=== PATIENT | male | born 1950 | race Caucasian/White ===

== ENCOUNTER 2019-03-29 11:40 | Emergency (ER) | payer SELFPAY ==
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
[2019-03-29] MEDS: SODIUM CHLORIDE 0.9% 1000ML 1,000 ML IVS ONE (12:39)
[2019-03-29] MEDS: ONDANSETRON INJ 4 MG/2 ML VIAL IV ONE (12:40)
--- NOTE | 2019-03-29 12:48 | RAD ---
EXAM DESCRIPTION: Abdomen Series CLINICAL HISTORY: 68 years Male, abdominal pain COMPARISON: None. FINDINGS: No consolidation. No pneumothorax. No significant pleural effusion. Cardiomediastinal silhouette is unremarkable. No evidence of bowel dilatation to suggest obstruction. No obvious free air. No significant air-fluid levels. Osseous structures are unremarkable. IMPRESSION: 1. No acute findings within the chest. 2. Nonobstructive bowel gas pattern. Electronically signed by: Bakari Rose MD 03/29/2019 12:46 PM CDT
[2019-03-29 13:39] VITALS: BP 193/110; TEMP 979.1; O2SAT 99
== END 2019-03-29 13:30 | disposition home or self-care (01) ==
LOC: ER 11:40
DX: K52.9 Noninfective gastroenteritis and colitis, unspecified (principal); E11.65 Type 2 diabetes mellitus with hyperglycemia; I10 Essential (primary) hypertension; Z87.891 Personal history of nicotine dependence; Z79.84 Long term (current) use of oral hypoglycemic drugs; Z79.899 Other long term (current) drug therapy; Z88.8 Allergy status to other drugs, medicaments and biological substances; Z87.828 Personal history of other (healed) physical injury and trauma; Z99.3 Dependence on wheelchair
CPT/HCPCS: 36415; 74019; 80053; 83690; 84484; 85025; J2405; J7030

== ENCOUNTER 2019-06-25 22:33 | Inpatient (IN) | payer MEDICAID ==
[2019-06-25] MEDS ORDERED: IPRATROPIUM/ALBUTEROL 3 ML VIAL NEB ONE ×3 (22:43→23:48)
[2019-06-25] MEDS ORDERED: FUROSEMIDE INJ 40 MG/4 ML VIAL IV ONE (22:47)
[2019-06-25] MEDS ORDERED: METOPROLOL TARTRATE 50 MG TAB PO ONE (23:22)
--- NOTE | 2019-06-25 23:25 | RAD ---
EXAM DESCRIPTION: XR Chest,1 View CLINICAL HISTORY: shortness of breath, edema TECHNIQUE: Single frontal view of the chest is submitted. COMPARISON: None available for comparison FINDINGS: Heart: The cardiothoracic silhouette is enlarged. Lungs: Central pulmonary vascular and interstitial prominence and bibasilar opacities. Mediastinum: Thoracic aortic atherosclerosis. Pleura: Blunting of the costophrenic angles bilaterally. Bones: Intact Upper abdomen: Unremarkable IMPRESSION: Findings which may be related to pulmonary congestion including small bilateral pleural effusions. Superimposed infection not excluded. Electronically signed by: Natalee Hodge MD 06/25/2019 11:23 PM [facility]
[2019-06-25] MEDS ORDERED: methylPREDNISolone SODIUM SUC 40 MG/ML VIAL IV ONE (23:47)
[2019-06-25] MEDS ORDERED: cefTRIAXone SODIUM 1 GM in SODIUM CHL 0.9% 50ML MIN-BAG+ 50 ML IVPB ONE (23:49)
[2019-06-25] MEDS ORDERED: cefTRIAXone SODIUM 1 GM VIAL ONE (23:58)
[2019-06-25] MEDS ORDERED: SODIUM CHL 0.9% 50ML MIN-BAG+ 50 ML IVPB ONE (23:59)
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
[2019-06-26] MEDS ORDERED: LEVOTHYROXINE SODIUM 0.1 MG TAB ONE ×2 (00:02→20:18)
[2019-06-26] MEDS ORDERED: LEVOTHYROXINE SODIUM 0.025 MG TAB ONE ×2 (00:02→20:18)
--- NOTE | 2019-06-26 00:31 | HP ---
SUPERVISING PHYSICIAN: Robert Bullock M.D. CHIEF COMPLAINT: Increasing shortness of breath. HISTORY OF PRESENT ILLNESS: Mr. Aviles is a 69 year-old male patient that presented to the Emergency Room this morning secondary to severe shortness of breath with some respiratory distress. He noted that he was unable to breathe lying flat and then he was breathing initially on presentation to the Emergency Room notably up to 30 times per minute. It was noted by the Emergency Room physician that he was having a significant amount of jugular venous distention. The patient endorsed that his shortness of breath had progressively worsened over the last month, but last night prior to presenting to the Emergency Room he got where he could not walk any significant amount without significant shortness of breath. On initial presentation to the Emergency Room, he was satting 85% on room air even at rest. He also endorsed that he had gained well over 35 pounds in the last month. He has been incarcerated for over 12-1/2 years, having just been released in March. While he was in long-term he notes that he had several heart attacks and it was actually recommended that he have coronary artery bypass graft which he refused to have done. He does have a history of smoking and has continued to smoke once he got out of care home, but denied any significant history of any congestive heart failure or cirrhosis. In the Emergency Room, he was started on Lasix, beta carlos and oxygen. His initial vital signs in the Emergency Room showed he was significantly hypertensive at 151/102 with saturation 87% on room air. After treatment, he had significant improvement. With Lasix and further treatment, he was showing to be no longer in a significant amount of distress, was satting 99% on 2 liters nasal cannula and was showing stable enough to be admitted. He is now going to be admitted for treatment of congestive heart failure as his labs did show he had a BNP of 776 and his chest x-ray showed findings that were consistent with pulmonary edema with central pulmonary vascular and interstitial prominence, and bibasilar opacities. He was admitted in stable condition. PAST MEDICAL HISTORY: 1. Previous myocardial infarctions not treated. 2. Several episodes of heat exhaustion. 3. Hypertension. 4. Diabetes mellitus on oral therapy. PAST SURGICAL HISTORY: No major surgeries or procedures listed. HOME MEDICATIONS: Listed as discharge from incarceration in March with no followup, that he was on: 1. Metoprolol 25 mg b.i.d. 2. Metformin 500 mg b.i.d. 3. Atorvastatin 40 mg at bedtime. 4. Glipizide 5 mg daily. ALLERGIES: ISOSORBIDE NITRATE. FAMILY HISTORY: Mother has a history of heart disease. Father's history is unknown. He has 1 sister who has chronic obstructive pulmonary disease and 1 brother who has diabetes that was at age 41. SOCIAL HISTORY: The patient is recently released from incarceration after 12- 1/2 years on a 25 year sentence from probation. He does have a history of smoking and he mostly smokes about 1/4 pack a day and currently lives with his nephew. He does not use illicit drugs or alcohol. He currently is enrolled in a 12-step program. REVIEW OF SYSTEMS: CONSTITUTIONAL: Positive for general malaise and weakness. HEENT: Denies any headaches, vision changes, sore throat, ear aches, nasal congestion or headaches. RESPIRATORY: As noted in History of Present Illness, increasing cough which is productive with purulent sputum with shortness of breath and increasing amount of wheezing. CARDIOVASCULAR: Denies any palpitations, syncopal episodes. Positive for worsening bilateral lower extremity edema. GASTROINTESTINAL: Negative for any nausea, vomiting, diarrhea, constipation or abdominal pains. GENITOURINARY: Denies any dysuria, hematuria or polyuria. MUSCULOSKELETAL: Denies any significant changes. He is apparently wheelchair dependent due to a past accident with lower extremity weakness. SKIN: Denies any lesions, rashes, moles or unexplained changes. NEUROLOGIC: Notes he has some anxiety but denies any seizures, ataxia, syncopal episodes or other focal deficits. ENDOCRINE: Negative for polydipsia, polyphagia. Notes that he does have excessive sweating. HEMATOLOGIC: Denies easy bruising, unexplained bleeding or transfusion reactions. PHYSICAL EXAMINATION: VITAL SIGNS: Temperature 96.9, pulse 108, blood pressure 151/102, showing 28 respirations with 87% saturation on room air. After breathing treatment and Lasix on 2 liters nasal cannula was satting 97%, blood pressure was down to 138/88, heart rate 86. GENERAL: On examination on the Medical/Surgical floor, the patient was alert. Appeared to be in no obvious distress, but was reporting distress on initial presentation to the Emergency Department. He does appear to be ill-appearing and somewhat disheveled. HEENT: Tympanic membranes were mostly obscured with cerumen. Oropharynx was showing to be pink and moist with extremely poor dentition. NECK: Supple with no noted jugular venous distention, but reported jugular venous distention prior to treatment. Neck was supple, non-tender with full range of motion. RESPIRATORY: Decreased breath sounds towards the bases but no obvious wheezing, rales or rhonchi. CARDIOVASCULAR: Regular rate and rhythm without appreciable murmurs, gallops, or rubs. ABDOMEN: Obese but looks distended. Soft to palpation with positive bowel sounds. BACK: Exam was without any CVA or vertebral tenderness. EXTREMITIES: Shows 3+ edema to bilateral lower extremities with chronic changes indicating chronic stasis ulcers in the past. NEUROLOGIC: Cranial nerves II-XII are grossly intact. He was alert and oriented times three. Facial features were symmetrical. Extraocular movements are within normal limits. There is no notable nystagmus. SKIN: Warm, pink and dry again with chronic changes noted to both lower extremities. RECTAL: Exam was deferred. LABORATORY: CBC showed white count 6,500, hemoglobin 14.8, hematocrit 46.2, platelet count 240,000. Differential showed to be without a left shift initially. RBC indices indicate a microcytic hypochromic presentation. Coagulation studies showed PT of 12.4, PTT of 26.4. Chemistries show normal electrolytes with glucose 144, BUN initially was 8, creatinine 0.8, lactic acid 1.8. Liver functions are all within normal limits. Magnesium normal at 1.9. BNP was elevated at 762, TSH was elevated at 10.6. Free T4 was pending. MICROBIOLOGY: Influenza A and B by PCR was negative. RADIOLOGY: Chest x-ray per radiology interpretation shows findings which may be related to pulmonary congestion including some small bilateral pleural effusions, but superimposed infection is not excluded. This was followed-up with a CT of the chest without contrast and per radiology interpretation showed no acute abnormality of the chest. There was note of a large right and moderate left pleural effusions with adjacent passive atelectasis, although underlying pneumonia or aspiration excluded but felt to be less likely with mild bilateral edema and mild ascites with emphysematous changes bilaterally. Echocardiogram pending. ASSESSMENT: 1. Acute decompensated heart failure, likely chronic etiology likely due to cardiomyopathy with echocardiogram pending and exacerbated by poorly controlled hypertension. 2. Chronic obstructive pulmonary disease with concerns for developing bilateral pneumonia. 3. Respiratory distress with pending failure secondary to #1 requiring aggressive management. 4. Hypertension poorly controlled. 5. Diabetes mellitus type 2, poorly controlled. 6. Elevated TSH likely due to untreated hypothyroidism with pending further workup. 7. Nicotine addiction in a current smoker. PLAN: Mr. Aviles is going to be admitted for continuation of workup of acute respiratory failure/distress secondary to congestive heart failure exacerbation. I have ordered an echocardiogram to further help in his management. I have also started him on treatment for questionable underlying pneumonia given his past history of incarceration and started him on azithromycin and Rocephin. He will be on sliding scale per protocol. I have him on Lasix 40 mg IV b.i.d. Start him on an Doc inhibitor in the form of Lisinopril and continue his beta carlos. I have started him on nicotine patch for smoking cessation and continued reinforcement. I have got him on deep venous thrombosis prophylaxis per protocol. Given the findings on x-ray and CT studies, I have discussed the case with Dr. Wise who has agreed to take a look at his CT to see if there is any further need for further consultation for possible thoracentesis given the underlying pleural effusions. Will have him on fluid restrictions 1500 mL for 24 hours. Will go ahead and give him some Solu-Medrol 40 mg every 12 hours given his degree of wheezing and his past history of smoking on top of emphysema and further assess clinically. He is also been started on Levothyroxine with T4 pending. I have anticipated his length of stay to be at least 2 to 3 days. Once he is medically stabilized, he will need close followup in the outpatient setting with a primary care physician and help with further medical management. I am waiting on further assessment of his echocardiogram to help with his management of his congestive heart failure. Until we can transition him to outpatient management will continue to monitor and treat as needed. #[id number] [facility]
[2019-06-26] MEDS ORDERED: GLUCAGON INJ 1 MG VIAL SUBCU PRN (03:26)
[2019-06-26] MEDS ORDERED: DEXTROSE 10% 500ML IVPB PRN (03:26)
[2019-06-26] MEDS ORDERED: ACETAMINOPHEN SUPPOSITORY 650 MG PR PRN (03:37)
[2019-06-26] MEDS ORDERED: SODIUM CHLORIDE 0.9% (FLUSH) 10 ML SYG IV PRN (03:37)
[2019-06-26] MEDS ORDERED: ONDANSETRON INJ 4 MG/2 ML VIAL IV PRN (03:37)
[2019-06-26] MEDS ORDERED: NITROGLYCERIN 0.4 MG 25 EA TAB SL PRN (03:37)
[2019-06-26] MEDS ORDERED: IPRATROPIUM/ALBUTEROL 3 ML VIAL INH PRN (03:37)
[2019-06-26] MEDS: IV SET AND CAP CHANGE INJ INJ SCH (04:42)
[2019-06-26] MEDS ORDERED: AZITHROMYCIN IV 500 MG VIAL IVPB ONE ×2 (04:55→20:18)
[2019-06-26] MEDS ORDERED: SODIUM CHLORIDE 0.9% 250ML 250 ML ONE ×2 (04:55→20:17)
[2019-06-26] MEDS: AZITHROMYCIN IV 500 MG in SODIUM CHLORIDE 0.9% 250ML 250 ML IVPB SCH (05:43)
[2019-06-26] MEDS: INSULIN LISPRO 100 UNITS/ML PEN SUBCU SCH ×4 (07:32→21:24)
[2019-06-26] MEDS ORDERED: glipiZIDE 5 MG TAB PO SCH (09:00)
[2019-06-26] MEDS ORDERED: glipiZIDE EXTENDED REL (XL) 5 MG TAB ONE (09:00)
[2019-06-26] MEDS ORDERED: cefTRIAXone SODIUM 1 GM VIAL ONE (09:01)
[2019-06-26] MEDS ORDERED: SODIUM CHL 0.9% 50ML MIN-BAG+ 50 ML IVPB ONE (09:02)
[2019-06-26] MEDS: IPRATROPIUM/ALBUTEROL 3 ML VIAL INH SCH ×4 (09:02→20:00)
[2019-06-26] MEDS: METOPROLOL TARTRATE 25 MG TAB PO SCH ×2 (09:22→20:43)
[2019-06-26] MEDS: LISINOPRIL 5 MG TAB PO SCH (09:22)
[2019-06-26] MEDS: SODIUM CHLORIDE 0.9% (FLUSH) 10 ML SYG IV SCH ×2 (09:23→20:44)
[2019-06-26] MEDS: FUROSEMIDE INJ 40 MG/4 ML VIAL IV SCH ×2 (09:23→17:17)
[2019-06-26] MEDS: cefTRIAXone SODIUM 1 GM in SODIUM CHL 0.9% 50ML MIN-BAG+ 50 ML IVPB SCH (09:23)
[2019-06-26] MEDS: metFORMIN XR 500 MG TAB.ER.24 PO SCH ×2 (09:23→21:25)
[2019-06-26] MEDS: methylPREDNISolone SODIUM SUC 40 MG/ML VIAL IV SCH ×2 (09:23→20:44)
--- NOTE | 2019-06-26 10:48 | CT ---
EXAM DESCRIPTION: Chest w/o Contrast CLINICAL HISTORY: 69 years Male, severe hypoxia, CHF vs COPD exec COMPARISON: Chest radiograph 06/25/2019. TECHNIQUE: CT images through the chest without IV contrast. Multiplanar reformations provided. This exam was performed according to our departmental dose-optimization program, which includes automated exposure control, adjustment of the mA and/or kV according to patient size and/or use of iterative reconstruction technique. CT CHEST FINDINGS: Heart and mediastinum: Enlarged heart. Small pericardial effusion measuring up to 7 mm in thickness anteriorly. Unremarkable esophagus. Mild atherosclerosis. No mediastinal adenopathy. Evaluation for hilar adenopathy limited without intravenous contrast. Thyroid Gland: Normal. Lungs: Mild atelectasis consolidation in the lower lobes adjacent pleural effusions. This probably represents passive atelectasis although pneumonia or aspiration not excluded. Emphysematous changes bilaterally. Airways: Normal. Pleura: Large right and moderate left pleural effusions with adjacent atelectasis or consolidation. Musculoskeletal and Soft Tissues: No acute fracture or aggressive appearing osseous lesion. Mild body wall edema. Subphrenic Structures: Mild ascites. IMPRESSION: 1. No acute abnormality of the chest. 2. Large right and moderate left pleural effusions with adjacent passive atelectasis, although underlying pneumonia or aspiration excluded but felt to be less likely. 3. Mild bilateral edema and mild ascites. 4. Emphysematous changes bilaterally. Electronically signed by: Randy Leung MD 06/26/2019 10:46 AM FITTING ROOM INSPECTOR
[2019-06-26] MEDS: NICOTINE PATCH 14 MG TD SCH (14:43)
[2019-06-26] MEDS ORDERED: glipiZIDE 5 MG TAB ONE (20:17)
[2019-06-26] MEDS: ATORVASTATIN 20 MG TAB PO SCH (20:43)
[2019-06-26] MEDS: ENOXAPARIN SODIUM 40 MG/0.4 ML SYG SUBCU SCH (20:43)
[2019-06-26] MEDS ORDERED: LEVOTHYROXINE SODIUM 0.1 MG, LEVOTHYROXINE SODIUM 0.025 MG PO ONE ×2 (23:50)
[2019-06-27] MEDS: AZITHROMYCIN IV 500 MG in SODIUM CHLORIDE 0.9% 250ML 250 ML IVPB SCH (05:31)
[2019-06-27] MEDS: glipiZIDE 5 MG TAB PO SCH (06:53)
[2019-06-27] MEDS ORDERED: SODIUM CHL 0.9% 50ML MIN-BAG+ 50 ML IVPB ONE (08:05)
[2019-06-27] MEDS ORDERED: cefTRIAXone SODIUM 1 GM VIAL ONE (08:05)
[2019-06-27] MEDS: INSULIN LISPRO 100 UNITS/ML PEN SUBCU SCH ×4 (08:13→21:24)
[2019-06-27] MEDS: METOPROLOL TARTRATE 25 MG TAB PO SCH ×2 (08:55→21:19)
[2019-06-27] MEDS: NICOTINE PATCH 14 MG TD SCH (08:56)
[2019-06-27] MEDS: metFORMIN XR 500 MG TAB.ER.24 PO SCH ×2 (08:56→21:19)
[2019-06-27] MEDS: FUROSEMIDE INJ 40 MG/4 ML VIAL IV SCH ×2 (08:56→17:11)
[2019-06-27] MEDS: methylPREDNISolone SODIUM SUC 40 MG/ML VIAL IV SCH ×2 (08:56→21:20)
[2019-06-27] MEDS: LISINOPRIL 5 MG TAB PO SCH (08:56)
[2019-06-27] MEDS: cefTRIAXone SODIUM 1 GM in SODIUM CHL 0.9% 50ML MIN-BAG+ 50 ML IVPB SCH (08:56)
[2019-06-27] MEDS: SODIUM CHLORIDE 0.9% (FLUSH) 10 ML SYG IV SCH ×2 (08:57→21:19)
[2019-06-27] MEDS: IPRATROPIUM/ALBUTEROL 3 ML VIAL INH SCH ×4 (09:07→19:56)
--- NOTE | 2019-06-27 12:33 | CONS ---
REFERRING PHYSICIAN: Edi Reagan NP/ Robert Bullock MD HISTORY OF PRESENT ILLNESS: The patient is a 69 year-old male who presented to the Emergency Room with shortness of breath, respiratory distress and hypoxia. He had the signs and symptoms of congestive heart failure and is being treated for that, however, he was also found on x-ray on CT scan to have bilateral pleural effusions and I was asked to consider diagnostic and/or therapeutic thoracentesis. Currently, the patient is relatively comfortable on nasal cannula oxygen with a respiratory rate of 40 to 22. PAST MEDICAL HISTORY: Significant for myocardial infarctions, strokes, diabetes type 2 and hypertension. The patient states he has had hepatitis B or C sometime in the past but he has not been treated. PAST SURGICAL HISTORY: None. CURRENT MEDICATIONS: 1. Metoprolol. 2. Metformin. 3. Atorvastatin. 4. Glipizide. ALLERGIES: ISOSORBIDE NITRATE. FAMILY HISTORY: Positive for heart disease, chronic obstructive pulmonary disease and diabetes. SOCIAL HISTORY: The patient is . He was recently released from incarceration after 12 years for DWI. He continues to smoke. He does not use alcohol or drugs currently. He did use methamphetamine intravenously in his younger days pre-incarceration. REVIEW OF SYSTEMS: There has been no cough, fever or significant chest pain. No normal vaginal delivery or change in bowel habits. There is no significant problem voiding. PHYSICAL EXAMINATION: VITAL SIGNS: GENERAL: The patient is alert and oriented and cooperative and in no acute distress. He is currently afebrile, normotensive. HEENT: Sclera nonicteric, mucous membranes are moist. NECK: Without adenopathy. BACK: Without CVA tenderness. CHEST: Equal distant breath sounds bilaterally. There are decreased breath sounds posteriorly in the basis. HEART: Regular rate and rhythm. ABDOMEN: Soft, non-tender. RECTAL: Examination deferred. LABORATORY: Potassium of 4.2 yesterday. Blood sugar 305, liver functions within normal limits. White count 4.7 yesterday with hemoglobin 14.6, platelet count 235,000. Neutrophils 86%. ADMITTING DIAGNOSIS: 1. Congestive heart failure likely the cause of his bilateral pleural effusions that are mildly symptomatic. 2. History of hepatitis. 3. History of IV drug use. RECOMMENDATIONS: Check the patient for hepatitis. Recommend a TB skin test a an outpatient. Continue the diuresis with strict I&Os and if his symptoms fail to resolve, would consider a therapeutic and/or diagnostic thoracentesis under sonographic guidance. #[id number] [facility] CENTERMaciej
[2019-06-27] MEDS ORDERED: SODIUM CHLORIDE 0.9% 250ML 250 ML ONE (19:16)
[2019-06-27] MEDS ORDERED: AZITHROMYCIN IV 500 MG VIAL IVPB ONE (19:17)
[2019-06-27] MEDS: ATORVASTATIN 20 MG TAB PO SCH (21:19)
[2019-06-27] MEDS: ENOXAPARIN SODIUM 40 MG/0.4 ML SYG SUBCU SCH (21:19)
[2019-06-27] MEDS ORDERED: ACETAMINOPHEN 325 MG TAB PO PRN (21:53)
[2019-06-28] MEDS: AZITHROMYCIN IV 500 MG in SODIUM CHLORIDE 0.9% 250ML 250 ML IVPB SCH (05:45)
[2019-06-28] MEDS: glipiZIDE 5 MG TAB PO SCH (07:06)
[2019-06-28] MEDS: INSULIN LISPRO 100 UNITS/ML PEN SUBCU SCH ×5 (07:37→21:03)
[2019-06-28] MEDS ORDERED: SODIUM CHL 0.9% 50ML MIN-BAG+ 50 ML IVPB ONE (07:51)
[2019-06-28] MEDS ORDERED: cefTRIAXone SODIUM 1 GM VIAL ONE (07:52)
[2019-06-28] MEDS: METOPROLOL TARTRATE 25 MG TAB PO SCH ×2 (08:13→20:58)
[2019-06-28] MEDS: cefTRIAXone SODIUM 1 GM in SODIUM CHL 0.9% 50ML MIN-BAG+ 50 ML IVPB SCH (08:13)
[2019-06-28] MEDS: metFORMIN XR 500 MG TAB.ER.24 PO SCH ×2 (08:13→20:59)
[2019-06-28] MEDS: methylPREDNISolone SODIUM SUC 40 MG/ML VIAL IV SCH (08:13)
[2019-06-28] MEDS: SODIUM CHLORIDE 0.9% (FLUSH) 10 ML SYG IV SCH ×2 (08:14→20:59)
[2019-06-28] MEDS: LISINOPRIL 5 MG TAB PO SCH (08:14)
[2019-06-28] MEDS: FUROSEMIDE INJ 40 MG/4 ML VIAL IV SCH ×2 (08:14→17:04)
[2019-06-28] MEDS: NICOTINE PATCH 14 MG TD SCH (08:14)
[2019-06-28] MEDS: IPRATROPIUM/ALBUTEROL 3 ML VIAL INH SCH ×3 (08:54→16:52)
--- NOTE | 2019-06-28 09:00 | RAD ---
EXAM: XR Chest, 2 Views CLINICAL HISTORY: pneumonia TECHNIQUE: Frontal and lateral views of the chest. COMPARISON: 06/26/2019. FINDINGS: Limitations: None. Lungs: Persistent airspace consolidation in both lung bases. Pleural space: Stable left and decreased right pleural effusion. No pneumothorax. Heart: Stable cardiac enlargement. Mediastinum: Unremarkable. Bones/joints: Unremarkable. Vasculature: Improved vascular congestion. IMPRESSION: Decreased right pleural effusion and bilateral vascular congestion. Abnormalities otherwise unchanged. Electronically signed by: Kayleen Varghese MD 06/28/2019 8:59 AM HARP MAKER
--- NOTE | 2019-06-28 09:42 | PN ---
DATE: 06/27/19 SUPERVISING PHYSICIAN: Robert Bullock MD SUBJECTIVE: The patient is sitting at the bedside table. He did have an assessment of oxygen trial off, on room air, and quickly desaturation to the mid 80s. He notes that his breathing is easy but he does get short of breath quickly. Dr. Wise has seen the patient in consultation. He is not reporting any chest pain, nausea, vomiting or diarrhea. OBJECTIVE: VITAL SIGNS: Temperature 98.1, pulse 96, blood pressure 112/71, respirations 20, oxygen saturation 93% on 2 liter nasal cannula, saturation down at 86% on room air. I&O: Not well managed as he does have a [place] in. His weight shows to be down from 89 kg to 85 kg on admission. GENERAL: The patient is resting comfortably, appears to be in no distress. CHEST: Lung sounds clear to auscultation, just diminished towards the bases bilaterally. HEART: Regular rate and rhythm. ABDOMEN: Obese, soft, non-tender, positive bowel sounds. EXTREMITIES: Just a trace of edema. There are some chronic changes to the christina area with just redness but no signs of cellulitis. NEUROLOGIC: He remains alert and oriented x 3. LABORATORY: Fairly normal yesterday. Blood sugars are showing to be elevated but stable between 190 and 289. Hepatitis panel is pending. HIV pending. RADIOLOGY: No additional studies today. ASSESSMENT: 1. Acute decompensated heart failure, likely chronic etiology likely due to cardiomyopathy with echocardiogram pending and exacerbated by poorly controlled hypertension. 2. Chronic obstructive pulmonary disease with concerns for developing bilateral pneumonia. 3. Respiratory distress with pending failure secondary to #1 requiring aggressive management with patient showing to be stable now. 4. Hypertension poorly controlled. 5. Diabetes mellitus type 2, poorly controlled. 6. Elevated TSH likely due to untreated hypothyroidism with pending further workup. 7. Nicotine addiction in a current smoker. PLAN: Dr. Wise has seen the patient in consultation. Will continue to monitor the patient closely and monitor his blood sugars and blood pressure and continue with some diuresis with Lasix. Will probably need to adjust his blood pressure medicine prior to discharge and increase his metoprolol as he is showing a little bit of increase in his heart rate, but it may be that he is getting a little dry. Will continue to work with the patient regarding his pulmonary hygiene in efforts to hopefully discharge the patient off of oxygen as I do not know that he has financial resources for home 02. We will check an x-ray in the morning. I have ordered a hepatitis panel and HIV, those are pending. When he is discharged he will need to have further workup including TB testing as he has been incarcerated. Will continue antibiotic coverage for concerning pneumonia which we can't completely rule out at this point Will need to probably start him on some levothyroxine and get a T4, T3 on him. Until we can transition him to outpatient management, we will continue to monitor and treat as needed. #[id number] [facility]
[2019-06-28] MEDS ORDERED: GABAPENTIN 300 MG CAP PO ONE (12:49)
[2019-06-28] MEDS ORDERED: POTASSIUM CHLORIDE 20 MEQ TAB PO ONE (12:50)
[2019-06-28] MEDS ORDERED: POTASSIUM CHLORIDE 20 MEQ TAB ONE (17:00)
[2019-06-28] MEDS ORDERED: GABAPENTIN 300 MG CAP ONE (17:00)
[2019-06-28] MEDS ORDERED: SODIUM CHLORIDE 0.9% 250ML 250 ML ONE (20:15)
[2019-06-28] MEDS ORDERED: AZITHROMYCIN IV 500 MG VIAL IVPB ONE (20:16)
[2019-06-28] MEDS: ATORVASTATIN 20 MG TAB PO SCH (20:58)
[2019-06-28] MEDS: ENOXAPARIN SODIUM 40 MG/0.4 ML SYG SUBCU SCH (20:58)
[2019-06-28] MEDS ORDERED: GABAPENTIN 300 MG CAP PO SCH (21:00)
--- NOTE | 2019-06-28 22:24 | PN ---
DATE: 06/28/19 SUPERVISING PHYSICIAN: Robert Bullock M.D. SUBJECTIVE: The patient is doing fairly well. He is not showing any distress or any worsening shortness of breath. He is actually able to go to a chair. I discussed with him that we are going to try to do some ambulation studies again to see what his oxygen assessment needs are. He has had no chest pains. No nausea or vomiting or any diarrhea. OBJECTIVE: VITAL SIGNS: Temperature 97.7, pulse 95, blood pressure 115/77, respirations 18, satting 95% on 2 liters nasal cannula. Weight id sown to 83.4 kg. GENERAL: The patient is resting comfortably. CHEST: Lung are much clearer today, just still diminished towards the bases but no wheezing or rhonchi are noted. HEART: Regular rate and rhythm. ABDOMEN: Obese, soft, non-tender, positive bowel sounds. EXTREMITIES: Just a trace of edema with no signs of cellulitis. NEUROLOGIC: He remains alert and oriented x 3. LABORATORY: Blood sugar still remains elevated but stable. Hepatitis panel and HIV are pending. Will plan to repeat a BMP in the morning. RADIOLOGY: Chest x-ray per radiology interpretation shows decreased right pleural effusion and bilateral vascular congestion with some persistent airspace consolidation both lung bases. Echocardiogram is still pending. ASSESSMENT: 1. Acute decompensated heart failure, likely chronic etiology likely due to cardiomyopathy with echocardiogram pending and exacerbated by poorly controlled hypertension with the patient showing good response to diuretics and fluid restrictions. 2. Chronic obstructive pulmonary disease with concerns for developing bilateral pneumonia showing good response with parenteral antibiotics. 3. Respiratory distress with pending failure secondary to #1 requiring aggressive management with patient showing to be stable now. 4. Hypertension poorly controlled. 5. Diabetes mellitus type 2, poorly controlled. 6. Elevated TSH likely due to untreated hypothyroidism with pending further workup. 7. Nicotine addiction in a current smoker. PLAN: Will continue with current plan at this point. Continue with diuresis and antibiotic coverage for underlying pneumonia. Dr. Wise remains on the case as consultation. We are further assessing the patient's need for oxygen. I would anticipate as he is improving he will go home tomorrow. He most likely will need oxygen qualification at home as soon as I see his echo will review his ejection fraction and further assess his home medications on discharge. If he remains a little bit tachycardic but he is not hypertensive, it may be that he is a little dry from his hyperglycemia from steroid administration. Will go ahead and stop steroids today but continue with Lasix. I have added additional coverage to his sliding scale with 8 units of insulin a.c. I hesitate to change his Metformin or add Levemir given that he is on steroids and this should improve once he is off these at home. I would anticipate when he discharges he is going to at least need to be on continued beta carlos and I have added Lisinopril which he will need a prescription for and continued antibiotic coverage along with qualification for oxygen. He will need to get established at some point with a primary care physician and I discussed going to the [facility] at this point. He does have pending workup in regards to hepatitis and HIV. Given that he has been incarcerated for over 12 years, I have also, along with Dr. Wise, recommended that he at some point have a PPD to further rule out any exposure to tuberculosis, but at this point there is no indication of any evidence of it on x-ray or clinical findings. Until we can transition to outpatient management will continue to monitor and treat as needed. #[id number] [facility]
[2019-06-29] MEDS: IV SET AND CAP CHANGE INJ INJ SCH (05:18)
[2019-06-29] MEDS: AZITHROMYCIN IV 500 MG in SODIUM CHLORIDE 0.9% 250ML 250 ML IVPB SCH (05:56)
[2019-06-29] MEDS: glipiZIDE 5 MG TAB PO SCH (06:44)
[2019-06-29] MEDS: IPRATROPIUM/ALBUTEROL 3 ML VIAL INH SCH ×3 (07:19→15:14)
[2019-06-29] MEDS: INSULIN LISPRO 100 UNITS/ML PEN SUBCU SCH ×4 (07:23→12:52)
[2019-06-29] MEDS ORDERED: SODIUM CHL 0.9% 50ML MIN-BAG+ 50 ML IVPB ONE (09:50)
[2019-06-29] MEDS ORDERED: cefTRIAXone SODIUM 1 GM VIAL ONE (09:51)
[2019-06-29] MEDS: LISINOPRIL 5 MG TAB PO SCH (10:04)
[2019-06-29] MEDS: METOPROLOL TARTRATE 25 MG TAB PO SCH (10:04)
[2019-06-29] MEDS: metFORMIN XR 500 MG TAB.ER.24 PO SCH (10:04)
[2019-06-29] MEDS: cefTRIAXone SODIUM 1 GM in SODIUM CHL 0.9% 50ML MIN-BAG+ 50 ML IVPB SCH (10:05)
[2019-06-29] MEDS: FUROSEMIDE INJ 40 MG/4 ML VIAL IV SCH (10:05)
[2019-06-29] MEDS: NICOTINE PATCH 14 MG TD SCH (10:05)
[2019-06-29] MEDS: SODIUM CHLORIDE 0.9% (FLUSH) 10 ML SYG IV SCH (10:06)
[2019-06-29] MEDS ORDERED: guaiFENesin ER TAB 600 MG TAB PO SCH (11:00)
[2019-06-29 17:42] VITALS: TEMP 98
[2019-06-29 17:50] VITALS: BP 130/81; O2SAT 95
[2019-06-30] MEDS ORDERED: LEVOTHYROXINE SODIUM 0.025 MG TAB PO SCH (06:30)
--- NOTE | 2019-07-07 08:15 | DS ---
SUPERVISING PHYSICIAN: Robert Bullock MD ADMISSION DIAGNOSES: 1. Acute decompensated heart failure, likely chronic etiology likely due to cardiomyopathy with echocardiogram pending and exacerbated by poorly controlled hypertension. 2. Chronic obstructive pulmonary disease with concerns for developing bilateral pneumonia. 3. Respiratory distress with pending failure secondary to #1 requiring aggressive management. 4. Hypertension poorly controlled. 5. Diabetes mellitus type 2, poorly controlled. 6. Elevated TSH likely due to untreated hypothyroidism with pending further workup. 7. Nicotine addiction in a current smoker. DISCHARGE DIAGNOSES: 1. Acute decompensated heart failure, likely chronic etiology likely due to cardiomyopathy with echocardiogram pending and exacerbated by poorly controlled hypertension with the patient showing good response to diuretics and fluid restrictions. 2. Chronic obstructive pulmonary disease with concerns for developing bilateral pneumonia showing good response with parenteral antibiotics. 3. Respiratory distress with pending failure secondary to #1 requiring aggressive management with patient showing to be stable now. 4. Hypertension poorly controlled. 5. Diabetes mellitus type 2, poorly controlled. 6. Elevated TSH likely due to untreated hypothyroidism with pending further workup. 7. Nicotine addiction in a current smoker. MEDICAL CONSULTATION: Dr. Sanjay Wise. Please see his note for details. REASON FOR HOSPITALIZATION: Mr. Aviles is a 69 year-old male patient that presented to the Emergency Room this morning secondary to severe shortness of breath with some respiratory distress. He noted that he was unable to breathe lying flat and then he was breathing initially on presentation to the Emergency Room notably up to 30 times per minute. It was noted by the Emergency Room physician that he was having a significant amount of jugular venous distention. The patient endorsed that his shortness of breath had progressively worsened over the last month, but last night prior to presenting to the Emergency Room he got where he could not walk any significant amount without significant shortness of breath. On initial presentation to the Emergency Room, he was satting 85% on room air even at rest. He also endorsed that he had gained well over 35 pounds in the last month. He has been incarcerated for over 12-1/2 years, having just been released in March. While he was in [facility] he notes that he had several heart attacks and it was actually recommended that he have coronary artery bypass graft which he refused to have done. He does have a history of smoking and has continued to smoke once he got out of correction, but denied any significant history of any congestive heart failure or cirrhosis. In the Emergency Room, he was started on Lasix, beta carlos and oxygen. His initial vital signs in the Emergency Room showed he was significantly hypertensive at 151/102 with saturation 87% on room air. After treatment, he had significant improvement. With Lasix and further treatment, he was showing to be no longer in a significant amount of distress, was satting 99% on 2 liters nasal cannula and was showing stable enough to be admitted. He is now going to be admitted for treatment of congestive heart failure as his labs did show he had a BNP of 776 and his chest x-ray showed findings that were consistent with pulmonary edema with central pulmonary vascular and interstitial prominence, and bibasilar opacities. He was admitted in stable condition. LABORATORY STUDIES: White count on admission was 6,500, at discharge was 9,100. Hemoglobin and hematocrit were showing to be stable at 14.1 and 45.2 respectively. His RBC indices indicated microcytic hyperchromic presentation. Platelet count 202,000. Differential showed to be without a left shift. Coagulation studies showed a PT of 12.4, PTT 26.5. Chemistries on admission showed normal electrolytes with BUN 8, creatinine 0.4. He did have an elevated BNP of 726. Liver functions were all within normal limits. TSH was high at 10.56. T4 was normal at 8.4. Free T4 index was low at 0.19. Blood sugars were elevated in the 200s. Prior to discharge they were showing to return to a more controlled level between 81 and 114. On discharge, electrolytes were showing to be within normal limits. Creatinine was at 0.79. Urinalysis showed to be within normal limits. Hepatitis panel showed all nonreactive for ABC. HIV was nonreactive. MICROBIOLOGY: Influenza A and B by PCR was negative. RADIOLOGY: Chest x-ray per radiology interpretation showed findings that may be related to pulmonary congestion including small bilateral pleural effusions, superimposed infection not excluded. This was followed up with a chest CT and per radiology interpretation without contrast showed no acute abnormality of the chest. There was a large right moderate left pleural effusion with adjacent passive atelectasis although underlying pneumonia or aspiration excluded but felt to be less likely. There is mild bilateral edema and mild ascites with incidental changes noted bilaterally. Please see that report for details. He also had a chest x-ray done on 06/28/19 and per radiology interpretation showed decreased right pleural effusion, bilateral vascular congestion. Echocardiogram showed severe diastolic function with a reduced ejection fraction fo approximately 15%. Please see that report for details. EKG showed a sinus tachycardia at [address] elevation or T-wave inversion. HOSPITAL COURSE: Mr. Aviles was admitted for congestive heart failure exacerbation and possible pneumonia. He was treated aggressively with diuretics, had medications resumed for control of his blood pressure. He did respond clinically in such a manner that it was felt on the day of discharge he had clinically improved well enough to continue with outpatient management. PLAN: Mr. Aviles was discharged on 06/29/19 with instructions to followup; with [facility] with Dr. Argueta. He was to qualify for oxygen which was arranged prior to discharge and is wear as directed via nasal cannula. He was also to keep a daily weight on the standing scale and buy a scale at [facility]. He was told if he had a weight increase of more than 3 pounds or increased swelling to his legs, any shortness of breath, he could take an extra Lasix and then resume as directed and to followup with the Clinic. He is to limit his fluids, he is to limit his daily salt to less than 2 grams a day and avoid added salt to food. He was encouraged to stop smoking. He was told to keep track of his blood sugars at least twice a day and take a log to see Dr. Argueta in followup. He is to return to the hospital if needed or for any worsening symptoms. Diet was diabetic, CHF diet as directed. Activities: Ambulate only with a walker per physical therapy and increase as tolerated. All new medications on discharge include: 1. Albuterol inhaler, 1 every 4 hours as needed, no refills. One inhaler. 2. Augmentin 875 twice a day for 5 days, no refills. 3. Lipitor 40 mg at bedtime, #30, no refills. 4. Lasix 40 mg daily, #30, no refills. 5. Neurontin 300 mg at bedtime, #30, no refills. 6. Glipizide 4 mg daily, #30, no refills. 7. Mucinex p.r.n. as needed. 8. Levothyroxine 0.35 mg daily in the morning, #30, no refills. 9. Lisinopril 5 mg daily, #30, no refills. 10. Metformin 500 mg twice a day, #60, no refills. 11. Metoprolol 25 mg twice a day, #60, no refills. 12. Potassium chloride 20 mEq daily, #30, no refills. Condition on discharge was stable and improved. Disposition: Patient was discharged to care of family members. #[id number] [facility]
== END 2019-06-29 17:10 | disposition home or self-care (01) | DRG 291 ==
LOC: ER 22:33 → OBSVTOIN 06-26 00:30 → MS 06-26 00:30
PROVIDERS: ADMIT Nurse Practitioner Family; ATTEND Nurse Practitioner Acute Care
DX: I11.0 Hypertensive heart disease with heart failure (principal); J96.00 Acute respiratory failure, unspecified whether with hypoxia or hypercapnia; J18.9 Pneumonia, unspecified organism; I50.9 Heart failure, unspecified; J43.9 Emphysema, unspecified; I42.9 Cardiomyopathy, unspecified; E11.65 Type 2 diabetes mellitus with hyperglycemia; E03.9 Hypothyroidism, unspecified; F17.210 Nicotine dependence, cigarettes, uncomplicated; I25.2 Old myocardial infarction; Z79.84 Long term (current) use of oral hypoglycemic drugs; Z79.51 Long term (current) use of inhaled steroids

== ENCOUNTER 2019-08-11 20:11 | Emergency (ER) | payer MEDICARE, MEDICAID ==
[~2019-08-11 20:11] MED LIST: EPINEPHrine INJ 0.1 MG/ML 10 ML SYG ONE; SODIUM BICARBONATE VIAL 50 MEQ/50 ML VIAL ONE
[2019-08-11] MEDS ORDERED: SODIUM CHLORIDE 0.9% 1000ML 0 ML ONE (20:18)
--- NOTE | 2019-08-11 20:33 | ED.PDOC ---
History of Present Illness - General Time Seen by Provider: 08/11/19 20:26 Source: EMS notes reviewed, family Exam Limitations: clinical condition - History of Present Illness Initial Comments: The patient is a 69-year-old male presented emergency room secondary to having essentially collapsed at home. There was maybe a 5-minute interval where he may have collapsed before he was found. The patient was not a healthy person. He did have significant COPD and CHF and has been wheelchair-bound for the last 10 years or so. At one point he did have a urostomy. The patient does have 3+ edema throughout. Even with the chest compression device on, pulses are weak. The patient had received epinephrine with EMS and received further epinephrine with bicarb here. Breath sounds were good bilaterally while being bagged. ET tube was placed by EMS prior to arrival. An IO was placed in the left lower extremity for access through which the epinephrine was being given. Even on EMSs telemetry monitoring he never showed anything other than asystole. There was one period here where there was questionable fine V. fib and he was defibrillated x1. It had no positive effect. Further checks only showed asystole. No palpable pulse with cessation of chest compressions. No spontaneous breathing. No spontaneous movements. Ultrasound of the heart shows no coordinated cardiac motion and essentially no motion at all. The patient was pronounced at 8:21 PM. No signs of life. The patient has been discussed with family and all questions were answered. The patient was found down approximately 30 minutes prior to that. Timing/Duration: 1/2 hour Severity: severe Allergies/Adverse Reactions: Allergies Isosorbide Nitrate Allergy (Verified 03/29/19 12:10) Home Medications: Ambulatory Orders Albuterol Sulfate [Albuterol Sulfate Hfa] 108 mcg IN Q4HR PRN #1 aer 06/29/19 Amoxicillin & Pot Clavulanate [Augmentin Tab] 875 mg PO BID #10 tab 06/29/19 Atorvastatin Calcium 40 mg PO BEDTIME #30 tab 06/29/19 Furosemide Tab [Lasix Tab] 40 mg PO DAILY #30 tab 06/29/19 Gabapentin [Neurontin] 300 mg PO BEDTIME #30 cap 06/29/19 Glipizide 5 mg PO DAILY #30 tab 06/29/19 Levothyroxine Sodium [Synthroid] 0.025 mg PO DAILY@0630 #30 tab 06/29/19 Lisinopril [Prinivil] 5 mg PO DAILY #30 tab 06/29/19 Metformin HCl [Metformin Hydrochloride E] 500 mg PO BID #60 tab 06/29/19 Metoprolol Tartrate 25 mg PO BID #60 tab 06/29/19 Potassium Chloride Tab [K-Dur] 20 meq PO DAILY #30 tab 06/29/19 guaiFENesin ER TAB [Mucinex Tab] 1,200 mg PO BID tab 06/29/19 Review of Systems - Review of Systems Review of Systems: 08/11/19 20:33 All information prior to the event is from family. Constitutional: States: malaise, weakness - Generalized EENTM: States: no symptoms reported Respiratory: States: cough, orthopnea - Chronic, short of breath - Chronic, wheezing - Chronic Cardiology: States: edema - Chronic Gastrointestinal/Abdominal: States: no symptoms reported Genitourinary: States: no symptoms reported Musculoskeletal: States: no symptoms reported Skin: States: see HPI Neurological: States: other - Chronic peripheral neuropathy Endocrine: States: no symptoms reported Unable to Obtain Due To: intubated Past Medical History (General) - Patient Medical History Hx Seizures: No Hx Stroke: Yes Hx Asthma: No Hx of COPD: No Hx Cardiac Disorders: Yes - chf ? Hx Congestive Heart Failure: No Hx Pacemaker: No Hx Hypertension: Yes Hx Diabetes: Yes - Type 2 Hx MRSA: No MRSA Source:: Wound - Vaccination History Hx Influenza Vaccination: No Hx Pneumococcal Vaccination: No - Social History Hx Tobacco Use: Yes Hx Alcohol Use: Yes Hx Substance Use: No Hx Substance Use Treatment: Yes Hx Physical Abuse: No Hx Emotional Abuse: No Family Medical History - Family History Father Family History: Unknown Living Status: Unknown Mother Living Status: Still Living Hx Cardiac Disease: Yes Physical Exam - Physical Exam General Appearance: Other - Intubated and unresponsive. No sedative medications were given. Eye Exam: bilateral other - Pupils are 5 mm bilaterally and nonresponsive. No blink reflex. Ears, Nose, Throat: normal pharynx - ET tube is visibly in place. Neck: other - No obvious visible external abnormality. Respiratory: other - No spontaneous breath sounds. He does have fair air movement with bagging bilaterally. There are coarse rhonchi which is not new for him. Cardiovascular/Chest: other - 3+ edema. No perfusing cardiac rhythm. Extremities are pale. Peripheral Pulses: radial,right: 1+, radial,left: 1+ - With chest compressions only Gastrointestinal/Abdominal: other - Obese. scarring from urostomy is present. Extremity: pedal edema - 3+ bilaterally, other - Pale to cyanotic extremities. Neurologic: other - Unresponsive. Intubated. Flaccid. Skin Exam: cyanosis, pallor Progress - Progress Progress: 08/11/19 20:37 The patient presented in cardiac arrest. Given his history this is most likely a myocardial infarction however that cannot be said with certainty. His life expectancy at his last visit given his comorbidities was less than 6 months at that time. Resuscitation failed here. See history of present illness. Time of is 8:21 PM. Departure - Departure Clinical Impression: Cardiac arrest Congestive heart failure Qualifiers: Heart failure type: combined systolic and diastolic Heart failure chronicity: acute on chronic Qualified Code(s): I50.43 - Acute on chronic combined systolic (congestive) and diastolic (congestive) heart failure COPD (chronic obstructive pulmonary disease) Qualifiers: COPD type: chronic bronchitis Chronic bronchitis type: unspecified Qualified Code(s): J42 - Unspecified chronic bronchitis Disposition: Home Medications: Ambulatory Orders Albuterol Sulfate [Albuterol Sulfate Hfa] 108 mcg IN Q4HR PRN #1 aer 06/29/19 Amoxicillin & Pot Clavulanate [Augmentin Tab] 875 mg PO BID #10 tab 06/29/19 Atorvastatin Calcium 40 mg PO BEDTIME #30 tab 06/29/19 Furosemide Tab [Lasix Tab] 40 mg PO DAILY #30 tab 06/29/19 Gabapentin [Neurontin] 300 mg PO BEDTIME #30 cap 06/29/19 Glipizide 5 mg PO DAILY #30 tab 06/29/19 Levothyroxine Sodium [Synthroid] 0.025 mg PO DAILY@0630 #30 tab 06/29/19 Lisinopril [Prinivil] 5 mg PO DAILY #30 tab 06/29/19 Metformin HCl [Metformin Hydrochloride E] 500 mg PO BID #60 tab 06/29/19 Metoprolol Tartrate 25 mg PO BID #60 tab 06/29/19 Potassium Chloride Tab [K-Dur] 20 meq PO DAILY #30 tab 06/29/19 guaiFENesin ER TAB [Mucinex Tab] 1,200 mg PO BID tab 06/29/19
[2019-08-11 20:45] VITALS: TEMP 96.7
== END 2019-08-11 20:21 | disposition expired ==
LOC: ER 20:11
DX: I46.9 Cardiac arrest, cause unspecified (principal); J44.9 Chronic obstructive pulmonary disease, unspecified; I50.43 Acute on chronic combined systolic (congestive) and diastolic (congestive) heart failure; I11.0 Hypertensive heart disease with heart failure; E11.9 Type 2 diabetes mellitus without complications; E66.9 Obesity, unspecified; Z99.3 Dependence on wheelchair; Z86.73 Personal history of transient ischemic attack (TIA), and cerebral infarction without residual deficits; Z87.891 Personal history of nicotine dependence; Z88.8 Allergy status to other drugs, medicaments and biological substances; Z79.899 Other long term (current) drug therapy; Z79.84 Long term (current) use of oral hypoglycemic drugs; Z68.41 Body mass index [BMI] 40.0-44.9, adult